=== PATIENT | female | born 1985 | race Two or more races ===

== ENCOUNTER 2016-10-18 20:36 | Emergency (ER) | payer MEDICAID ==
[~2016-10-18] VITALS: Ht 154.9 cm; Wt 59.0 kg
[2016-10-18 21:39] LABS: Basophils # (auto) 0 uL; Basophils % (auto) 0.7 % (0.0-2.0); CONDITION Y; Eosinophils # (auto) 0.1 uL; Eosinophils % (auto) 1.1 % (0.0-7.0); Hematocrit 40.4 % (36.0-46.0); Hemoglobin 13.7 g/dL (12.2-16.2); Lymphocytes # (auto) 3.1 uL; Lymphocytes % (auto) 46.5 % (10.0-50.0); Mean Corpuscular Hgb Conc. 33.9 g/dL (32.0-36.0); Mean Corpuscular Volume 91.4 fL (80.0-100.0); Mean Platelet Volume 11.4 fL (7.4-10.4); Monocytes # (auto) 0.4 uL; Monocytes % (auto) 6.2 % (0.0-12.0); Neutrophils % (auto) 45.5 % (37.0-80.0); Platelet Count (auto) 238 10^3/uL (140-450); Red Cell Distribution Width 12.8 % (11.6-16.0); SUSPECT SEE PRINTOUT; White Blood Cell 6.7 10^3/uL (4.4-10.8)
[2016-10-18 21:53] LABS: Albumin 3.7 g/dL (3.4-5.0); Alkaline Phosphatase 272 U/L (45-117); Anion Gap 8 (5-15); Aspartate Aminotransferase 153 U/L (15-37); BUN/Creatinine Ratio 12.3; Bilirubin, Total 0.5 mg/dL (0.2-1.0); Blood Urea Nitrogen 10 mg/dL (7-18); Calcium 8.3 mg/dL (8.5-10.1); Carbon Dioxide 26 mmol/L (21-32); Chloride 105 mmol/L (98-107); GFR African American 105 mL/min; GFR Non-African American 87 mL/min; Glucose 112 mg/dL (74-106); Magnesium 2.3 mg/dL (1.6-2.6); Potassium 3.7 mmol/L (3.5-5.1); Sodium 139 mmol/L (136-145); Total Protein 7.3 g/dL (6.4-8.2)
[2016-10-18 22:00] LABS: B-Type Natriuretic Peptide 4.22 pg/mL (0-100)
[2016-10-18 22:44] LABS: INR 0.92 (0.9-1.15); Partial Thromboplastin Time 25.4 sec (22.64-33.71)
[2016-10-19 05:24] VITALS: BP 104/60
== END 2016-10-19 06:06 | disposition home or self-care (01) ==
LOC: ER 20:41
DX: K29.70 Gastritis, unspecified, without bleeding (principal); K72.90 Hepatic failure, unspecified without coma; Z88.0 Allergy status to penicillin; Z90.49 Acquired absence of other specified parts of digestive tract
CPT/HCPCS: 36415; 71020; 74176; 80053; 81025; 83690; 83735; 83880; 84484; 84702; 85025; 85610; 85730; 93005; 94761

== ENCOUNTER 2016-10-29 22:15 | Emergency (ER) | payer MEDICAID ==
[~2016-10-29] VITALS: Ht 154.9 cm; Wt 59.0 kg
[2016-10-29 23:15] LABS: Basophils # (auto) 0 uL; Basophils % (auto) 0.4 % (0.0-2.0); Eosinophils # (auto) 0 uL; Eosinophils % (auto) 0.5 % (0.0-7.0); Hematocrit 40.6 % (36.0-46.0); Hemoglobin 13.6 g/dL (12.2-16.2); Lymphocytes % (auto) 25.7 % (10.0-50.0); Mean Corpuscular Hemoglobin 30.1 pg (28.0-32.0); Mean Corpuscular Hgb Conc. 33.6 g/dL (32.0-36.0); Mean Corpuscular Volume 89.5 fL (80.0-100.0); Mean Platelet Volume 11.4 fL (7.4-10.4); Monocytes # (auto) 0.5 uL; Monocytes % (auto) 6.3 % (0.0-12.0); Neutrophils # (auto) 5.3 uL; Neutrophils % (auto) 67.1 % (37.0-80.0); Platelet Count (auto) 243 10^3/uL (140-450); Red Cell Distribution Width 11.7 % (11.6-16.0); White Blood Cell 7.8 10^3/uL (4.4-10.8)
[2016-10-29 23:30] LABS: Albumin 3.5 g/dL (3.4-5.0); BUN/Creatinine Ratio 7.3; Calcium 8.5 mg/dL (8.5-10.1); Potassium 3.8 mmol/L (3.5-5.1)
[2016-10-29 23:39] LABS: Bilirubin, Total 0.8 mg/dL (0.2-1.0); Total Protein 7.1 g/dL (6.4-8.2)
[2016-10-30 05:14] VITALS: BP 103/63
== END 2016-10-30 05:33 | disposition home or self-care (01) ==
LOC: ER 22:16
DX: K59.00 Constipation, unspecified (principal); Z90.49 Acquired absence of other specified parts of digestive tract; Z98.51 Tubal ligation status; Z88.0 Allergy status to penicillin; Z87.440 Personal history of urinary (tract) infections
CPT/HCPCS: 36415; 74176; 80053; 82150; 83690; 84702; 85025

== ENCOUNTER 2016-11-07 02:41 | Emergency (ER) | payer MEDICAID ==
[~2016-11-07] VITALS: Ht 154.9 cm; Wt 59.0 kg
[2016-11-07 02:45] VITALS: BP 129/92
[2016-11-07 03:23] LABS: Basophils # (auto) 0 uL; Basophils % (auto) 0.3 % (0.0-2.0); CONDITION Y; Eosinophils # (auto) 0 uL; Eosinophils % (auto) 0.2 % (0.0-7.0); Hematocrit 41.5 % (36.0-46.0); Lymphocytes % (auto) 15.7 % (10.0-50.0); Mean Corpuscular Hemoglobin 30.8 pg (28.0-32.0); Mean Corpuscular Hgb Conc. 33.8 g/dL (32.0-36.0); Mean Corpuscular Volume 91.1 fL (80.0-100.0); Mean Platelet Volume 11.4 fL (7.4-10.4); Monocytes # (auto) 0.2 uL; Monocytes % (auto) 3.7 % (0.0-12.0); Neutrophils # (auto) 5.3 uL; Neutrophils % (auto) 80.1 % (37.0-80.0); Platelet Count (auto) 239 10^3/uL (140-450); Red Cell Distribution Width 12.6 % (11.6-16.0); White Blood Cell 6.6 10^3/uL (4.4-10.8)
[2016-11-07 03:42] LABS: Albumin 3.8 g/dL (3.4-5.0); Calcium 8.7 mg/dL (8.5-10.1); Potassium 3.9 mmol/L (3.5-5.1)
[2016-11-07 03:45] LABS: Bilirubin, Total 0.9 mg/dL (0.2-1.0); Total Protein 7.6 g/dL (6.4-8.2)
== END 2016-11-07 04:47 | disposition left against medical advice (07) ==
LOC: ER 02:41
DX: R10.9 Unspecified abdominal pain (principal); R11.2 Nausea with vomiting, unspecified; Z53.21 Procedure and treatment not carried out due to patient leaving prior to being seen by health care provider
CPT/HCPCS: 36415; 80053; 82150; 83690; 84702; 85025

== ENCOUNTER 2016-11-11 18:54 | Emergency (ER) | payer MEDICAID ==
[~2016-11-11] VITALS: Ht 154.9 cm; Wt 59.0 kg
[2016-11-11] MEDS ORDERED: SODIUM CHLORIDE 0.9% 1,000 ML IVB ONE (19:17)
[2016-11-11] MEDS ORDERED: ONDANSETRON HCL 4 MG/2 ML VIAL IV ONE (19:30)
[2016-11-11] MEDS ORDERED: HYDROmorphone HCL 2 MG/ML VL IV ONE ×2 (19:30→22:00)
[2016-11-11 19:39] LABS: Basophils # (auto) 0 uL; Basophils % (auto) 0.4 % (0.0-2.0); Eosinophils # (auto) 0 uL; Eosinophils % (auto) 0.1 % (0.0-7.0); Hematocrit 41.2 % (36.0-46.0); Hemoglobin 14.1 g/dL (12.2-16.2); Lymphocytes # (auto) 1.1 uL; Lymphocytes % (auto) 15.8 % (10.0-50.0); Mean Corpuscular Hemoglobin 31.6 pg (28.0-32.0); Mean Corpuscular Hgb Conc. 34.2 g/dL (32.0-36.0); Mean Corpuscular Volume 92.3 fL (80.0-100.0); Mean Platelet Volume 11.4 fL (7.4-10.4); Monocytes # (auto) 0.4 uL; Monocytes % (auto) 5.3 % (0.0-12.0); Neutrophils # (auto) 5.2 uL; Neutrophils % (auto) 78.4 % (37.0-80.0); Platelet Count (auto) 182 10^3/uL (140-450); Red Cell Distribution Width 12.6 % (11.6-16.0); White Blood Cell 6.7 10^3/uL (4.4-10.8)
[2016-11-11 20:45] LABS: BUN/Creatinine Ratio 10.6; Bilirubin, Total 2.1 mg/dL (0.2-1.0); Calcium 9.2 mg/dL (8.5-10.1); Potassium 3.4 mmol/L (3.5-5.1); Total Protein 7.6 g/dL (6.4-8.2)
[2016-11-11 22:51] LABS: Urine Bilirubin Negative (Negative); Urine Blood Negative /uL (Negative); Urine Color Yellow (Yellow); Urine Glucose Normal (Normal); Urine Ketone 3+ (Negative); Urine Mucus FEW (None Seen); Urine Nitrite Negative (Negative); Urine RBC 1 /hpf (0 - 4); Urine Squamous Epithelial Cell FEW /hpf (<5); Urine pH 5.5 (5.0-8.0)
[2016-11-12 00:20] VITALS: BP 97/69
== END 2016-11-12 00:32 | disposition short-term general hospital (02) ==
LOC: ER 18:56
DX: K72.90 Hepatic failure, unspecified without coma (principal); K83.1 Obstruction of bile duct; K59.00 Constipation, unspecified; R11.10 Vomiting, unspecified; F17.210 Nicotine dependence, cigarettes, uncomplicated; Z98.51 Tubal ligation status; Z90.49 Acquired absence of other specified parts of digestive tract; Z88.0 Allergy status to penicillin
CPT/HCPCS: 36415; 76705; 80053; 80307; 81001; 82150; 83690; 84702; 85025; 96361; 96374; 96375; 96376; 99285; J1170; J2405; J7030

== ENCOUNTER 2018-05-18 08:51 | Emergency (ER) | payer MEDICAID ==
[~2018-05-18] VITALS: Ht 154.9 cm; Wt 61.7 kg
[2018-05-18 09:00] VITALS: BP 117/80
[2018-05-18] MEDS ORDERED: LIDOCAINE 1% HCL (LOCAL ANESTH.) INJ 20ML MDV IJ ONE (10:15)
[2018-05-18] MEDS ORDERED: cefTRIAXone SOD 1,000 MG VL IM ONE (11:00)
== END 2018-05-18 11:52 | disposition home or self-care (01) ==
LOC: ER 09:02
DX: T17.1XXA Foreign body in nostril, initial encounter (principal); Z88.0 Allergy status to penicillin; Z90.49 Acquired absence of other specified parts of digestive tract; Z98.51 Tubal ligation status; Z87.440 Personal history of urinary (tract) infections; X58.XXXA Exposure to other specified factors, initial encounter; Y93.89 Activity, other specified; Y92.89 Other specified places as the place of occurrence of the external cause; Y99.8 Other external cause status
CPT/HCPCS: 30300; 96372; 99284; J0696; J2001

== ENCOUNTER 2018-09-22 07:33 | Emergency (ER) | payer MEDICAID ==
[~2018-09-22] VITALS: Ht 152.4 cm; Wt 61.7 kg
[2018-09-22 08:16] VITALS: BP 109/73
[2018-09-22 08:19] LABS: Basophils # (auto) 0 uL; Basophils % (auto) 0.2 % (0.0-2.0); Eosinophils # (auto) 0 uL; Eosinophils % (auto) 0.2 % (0.0-7.0); Hematocrit 43.4 % (36.0-46.0); Hemoglobin 14.9 g/dL (12.2-16.2); Lymphocytes # (auto) 0.7 uL; Lymphocytes % (auto) 6.6 % (10.0-50.0); Mean Corpuscular Hemoglobin 31.2 pg (28.0-32.0); Mean Corpuscular Hgb Conc. 34.2 g/dL (32.0-36.0); Mean Corpuscular Volume 91.1 fL (80.0-100.0); Monocytes # (auto) 0.4 uL; Monocytes % (auto) 3.6 % (0.0-12.0); Neutrophils # (auto) 9.5 uL; Neutrophils % (auto) 89.4 % (37.0-80.0); Platelet Count (auto) 240 10^3/uL (140-450); Red Blood Cells 4.77 10^6/uL (4.0-5.20); Red Cell Distribution Width 12.4 % (11.8-14.3); White Blood Cell 10.7 10^3/uL (4.4-10.8)
[2018-09-22 08:24] LABS: Urine Bacteria FEW /hpf (None Seen); Urine Blood Negative /uL (Negative); Urine WBC <1 /hpf (0 - 5)
[2018-09-22 08:27] LABS: Albumin 3.9 g/dL (3.4-5.0); BUN/Creatinine Ratio 14.3; Calcium 8.6 mg/dL (8.5-10.1); Potassium 3.6 mmol/L (3.5-5.1)
[2018-09-22] MEDS ORDERED: ONDANSETRON HCL 4 MG/2 ML VIAL IV ONE (08:30)
[2018-09-22] MEDS ORDERED: MORPHINE SULFATE 4 MG/ML SYR/VIAL IV ONE (08:30)
[2018-09-22 08:31] LABS: Bilirubin, Total 0.5 mg/dL (0.2-1.0); Total Protein 7.5 g/dL (6.4-8.2)
[2018-09-22] MEDS ORDERED: SODIUM CHLORIDE 0.9% 1,000 ML IV ONE (09:14)
== END 2018-09-22 10:03 | disposition home or self-care (01) ==
LOC: ER 07:33
DX: K52.9 Noninfective gastroenteritis and colitis, unspecified (principal); Z90.49 Acquired absence of other specified parts of digestive tract; Z88.0 Allergy status to penicillin
CPT/HCPCS: 36415; 74176; 80053; 81001; 81025; 85025; 96361; 96374; 96375; 99284; J2270; J2405; J7030